=== PATIENT | female | born 1960 | race Caucasian/White ===

== ENCOUNTER 2017-03-03 15:11 | Emergency (ER) | payer OTHER, BC ==
[~2017-03-03] VITALS: Ht 170.2 cm; Wt 95.3 kg
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
[2017-03-03] MEDS: CYCLOBENZAPRINE 10 MG TABLET. PO ONE (16:13)
[2017-03-03] MEDS: NAPROXEN 500 MG TABLET PO ONE (16:13)
--- NOTE | 2017-03-03 16:14 | EKG ---
[facility] [address] [place] [address] Test Date: 2017-03-03 Test Time: 15:39:05 Pat Name: BEN PRYOR Department: Room: Gender: F Rn Physician Office: : 1960 Requested By: BEV RODRIGES Order Number: [id number] Reading MD: Measurements Intervals [place] Rate: 63 P: 8 AL: 182 QRS: -18 QRSD: 78 T: 0 QT: 414 QTc: 427 Interpretive Statements SINUS RHYTHM LEFTWARD AXIS OTHERWISE NORMAL ECG RI6.01 No previous ECG available for comparison
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
[2017-03-03 16:40] VITALS: BP 143/70
[2017-03-03] MEDS ORDERED: NAPR250T6 PO (16:56)
[2017-03-03] MEDS ORDERED: CYCL10TA2 PO (16:56)
== END 2017-03-03 17:23 | disposition home or self-care (01) ==
LOC: ER 15:11
DX: S29.011A Strain of muscle and tendon of front wall of thorax, initial encounter (principal); S16.1XXA Strain of muscle, fascia and tendon at neck level, initial encounter; I10 Essential (primary) hypertension; E11.9 Type 2 diabetes mellitus without complications; E78.5 Hyperlipidemia, unspecified; F32.9 Major depressive disorder, single episode, unspecified; Z88.0 Allergy status to penicillin; V59.9XXA Occupant (driver) (passenger) of pick-up truck or van injured in unspecified traffic accident, initial encounter; Y93.I9 Activity, other involving external motion; Y99.8 Other external cause status; Y92.488 Other paved roadways as the place of occurrence of the external cause
CPT/HCPCS: 71020; 71120; 93005; 99284-25